=== PATIENT | male | born 1990 | race Caucasian/White ===

== ENCOUNTER 2019-04-29 11:12 | Emergency (ER) | payer MEDICAID, SELFPAY ==
[~2019-04-29] VITALS: Ht 177.8 cm; Wt 85.7 kg
[2019-04-29 11:27] VITALS: BP 138/78
[2019-04-29] MEDS ORDERED: LIDOCAINE-MPF 1%, 2ML ONE (12:10)
[2019-04-29] MEDS ORDERED: LIDOCAINE-MPF 1%, 5ML INFIL ONE (12:30)
--- NOTE | 2019-04-29 13:00 | NUR ---
Patient given discharge instructions and they have confirmed that they understand the instructions. Patient ambulatory with steady gait. Pt left with prescription, d/c paperwork and all personal belongings.
== END 2019-04-29 13:19 | disposition home or self-care (01) ==
LOC: ED 13:05
DX: L02.412 Cutaneous abscess of left axilla (principal)
CPT/HCPCS: 10060

== ENCOUNTER 2021-05-23 22:10 | Emergency (ER) | payer MEDICAID ==
[~2021-05-23] VITALS: Ht 180.3 cm; Wt 90.9 kg
--- NOTE | 2021-05-23 22:22 | NUR ---
task rn: pt states he wants to go home b/c he has work at 0500 in the morning. pt abmulatory to the dc desk with a steady gait. dr saini notified. provided taxi voucher to his house in [place].
[2021-05-23 22:27] VITALS: BP 158/99
== END 2021-05-23 22:34 ==
LOC: ED 22:23
DX: F10.229 Alcohol dependence with intoxication, unspecified (principal); Z72.9 Problem related to lifestyle, unspecified; Y90.0 Blood alcohol level of less than 20 mg/100 ml
CPT/HCPCS: 99283